=== PATIENT | female | born 1975 | race Caucasian/White ===

== ENCOUNTER 2016-09-28 11:27 | Emergency (ER) | payer OTHER ==
[2016-09-28 12:01] LABS: HEMOGLOBIN 12.8 gm/dl (12.3-15.3); RED BLOOD COUNT 4.36 M/UL (4.00-5.10); WHITE BLOOD COUNT 4.8 K/UL (4.5-11.0)
[2016-09-28 12:22] LABS: BUN/CREATININE RATIO 20 (0-10)
== END 2016-09-28 13:20 ==
LOC: ER1 11:27
PROVIDERS: Specialist/Technologist Athletic Trainer
DX: S11.91XA Laceration without foreign body of unspecified part of neck, initial encounter (principal); F17.200 Nicotine dependence, unspecified, uncomplicated; W26.8XXA Contact with other sharp object(s), not elsewhere classified, initial encounter; Z23 Encounter for immunization
CPT/HCPCS: 70498; 80053; 85025; 85610; 85730; 86850; 86900; 86901; 90471; 90715; 96361; 96374; 96375; 99284; J2270; J2405; J7050; Q9963

== ENCOUNTER → 2021-05-11 | Emergency (ER) | payer OTHER ==
[~2021-05-11] MED LIST: ANTI-ITCH28 GM TP; CORTIZONE-1057 GM TP; DOXYCYCLINE MO100 MG PO; KEFLEX CAP 500500 MG PO; LODINE CAP 300300 MG PO; PREDNISONE 50 M50 MG PO; PREDNISONE20 MG PO; PROVENTIL HFA6.7 GM INH; PYRIDIUM100 MG PO; ZOFRAN ODT 4 MG4 MG PO
[2021-05-11 23:50] LABS: HEMOGLOBIN 12.9 gm/dl (12.3-15.3); RED BLOOD COUNT 4.53 M/UL (4.00-5.10); WHITE BLOOD COUNT 8.7 K/UL (4.5-11.0)
== END | disposition home or self-care (01) ==
LOC: ER1 23:18
PROVIDERS: Emergency Medicine
DX: U07.1 COVID-19 (principal); F17.290 Nicotine dependence, other tobacco product, uncomplicated
CPT/HCPCS: 0240U; 36600; 71045; 82550; 82553; 82803; 84484; 85025; 93005; 99285